=== PATIENT | female | born 1970 | race Caucasian/White ===

== ENCOUNTER 2017-10-18 15:37 | Emergency (ER) | payer MEDICARE, MEDICAID ==
[~2017-10-18] VITALS: Ht 154.9 cm; Wt 75.0 kg
[2017-10-18 17:07] VITALS: BP 141/96
[2017-10-18] MEDS ORDERED: SYMBICORT1 AE1 IN (17:08)
[2017-10-18] MEDS ORDERED: VENTOLIN HFA IN (17:08)
[2017-10-18] MEDS ORDERED: ZYLOPRIM100 MG PO (17:08)
[2017-10-18] MEDS ORDERED: [UNRECOGNIZED DRUG - REMARK] (17:09)
[2017-10-18] MEDS ORDERED: ACID REFULX MED (17:09)
[2017-10-18 17:27] LABS: INFLUENZA A NONE DETECTED (NONE DETECT); INFLUENZA B NONE DETECTED (NONE DETECT)
[2017-10-18] MEDS ORDERED: MEDDOSEPAK PO (18:10)
[2017-10-18] MEDS ORDERED: AMOXICILLIN500 M2 PO (18:10)
== END 2017-10-18 18:20 | disposition home or self-care (01) ==
LOC: ED 15:37
PROVIDERS: Emergency Medicine
DX: R05 Cough (principal); R09.81 Nasal congestion; R07.89 Other chest pain; J40 Bronchitis, not specified as acute or chronic

== ENCOUNTER 2017-10-22 15:20 | Observation (INO) | payer MEDICARE, MEDICAID ==
[~2017-10-22] VITALS: Ht 154.9 cm; Wt 69.1 kg
[~2017-10-22 15:20] MED LIST: ACID REFULX MED; AMOXICILLIN500 M2 PO; MEDDOSEPAK PO; SYMBICORT1 AE1 IN; VENTOLIN HFA IN; ZYLOPRIM100 MG PO; [UNRECOGNIZED DRUG - REMARK]
--- NOTE | 2017-10-22 15:40 | NUR ---
ekg obtained in triage, md given ekg at this time.
--- NOTE | 2017-10-22 16:25 | NUR ---
PT TAKEN TO ER ROOM 8 BY ADA. CHANGED INTO GOWN. PLACED ON MONITOR.
--- NOTE | 2017-10-22 16:34 | NUR ---
IV ESTABLISHED, LABS DRAWN. PTS BREATHING SLOWED, & EVENED OUT. PT WAS INITIALLY TACHYPENIC AT 28RR, CURRENTLY 18RR. PT PLACED ON MONITOR. @ BEDSIDE. PT IN STABLE CONDITION.
[2017-10-22 16:59] LABS: HEMATOCRIT 40.2 % (37.0-47.0); HEMOGLOBIN 13.7 g/dl (12.0-16.0); IMMATURE GRANULOCYTES 0.2 % (0.0-1.0); MEAN CELL VOLUME 80.2 fL CALC (80.0-100.0); MEAN CORPUSCULAR HGB 27.3 pG CALC (26.0-32.0); MEAN CORPUSCULAR HGB CONC 34.1 g/L CALC (32.0-36.0); NEUT# 6.71 thou/uL (2.00-7.15); RED BLOOD COUNT 5.01 mill/uL (4.20-5.60); RED CELL DISTRI WIDTH 14.7 % (11.5-15.5)
[2017-10-22 17:18] LABS: ALBUMIN 4.5 g/dL (3.2-5.0); ALKALINE PHOSPHATASE 74 u/l (38-126); ANION GAP 17 (6-22 (CALC)); BILIRUBIN, TOTAL 0.4 mg/dL (0.0-1.4); BUN 19 mg/dL (7-17); BUN/CREATININE RATIO 23 (12-20 (CALC)); CARBON DIOXIDE 22 mmol/l (22-30); CHLORIDE 106 mmol/l (95-108); CREATININE 0.8 mg/dL (0.5-1.0); GFR > 60 ML/MIN (>=60 (CALC)); GFR FOR AFR.AMER. > 60 ML/MIN (>=60 (CALC)); POTASSIUM 4.6 mmol/l (3.5-5.1); SGOT/AST 21 u/l (14-36); SGPT/ALT 23 u/l (9-52); SODIUM 141 mmol/l (137-146); TOTAL PROTEIN 7.4 g/dL (6.3-8.2)
--- NOTE | 2017-10-22 19:20 | NUR ---
Admission Note Report Given to: ANICETO Transported by: Wheelchair X Stretcher Transported with: X Nurse Transporter X Patent IV O2 X Geotechnical Intern
[2017-10-22 19:55] VITALS: BP 141/72
--- NOTE | 2017-10-22 20:00 | NUR ---
RECEIVED FROM ER VIA STRETCHER ACCOMPANIED BY ER NURSE, AMBULATING TO STANDING SCALE THEN TO BED WITH STEADY GAIT. A/O X3, RESPIRATIONS EVEN AND UNLABORED. VITALS 96.9, 72, 141/88, 100%. TELE READING SR. ADMITS TO PAIN 7/10 UNDER LEFT BREAST. ADMITS TO HAVING STRESS DUE TO TWO RECENT FAMILY DEATHS. DR. BOSTON AWARE OF PTS ARRIVAL TO THE UNIT, NEW ORDERS RECEIVED. ENCOURAGED TO USE CALL LIGHT FOR ASSISTANCE.
--- NOTE | 2017-10-22 20:11 | NUR ---
Admission Note Report Given to: GABRIELA Transported by: Wheelchair X Stretcher Transported with: X Nurse Transporter X Patent IV O2 X Meteorology Faculty Member PT TRANSFERED TO ICU 7 IN STABLE CONDITION.
[2017-10-22 20:13] LABS: URINE BILIRUBIN - DIPSTICK NEGATIVE (NEGATIVE); URINE BLOOD DIPSTICK NEGATIVE (NEGATIVE); URINE COLOR YELLOW; URINE GLUCOSE - DIPSTICK NEGATIVE (NEGATIVE); URINE KETONE NEGATIVE (NEGATIVE); URINE LEUK ESTERASE TRACE (NEGATIVE); URINE NITRITE - DIPSTICK NEGATIVE (Negative); URINE PROTEIN - DIPSTICK NEGATIVE (NEG-TRACE); URINE SPECIFIC GRAVITY 1.025; URINE UROBILINOGEN - DIPSTICK 0.2 E.U./dL (0.2)
[2017-10-22 20:17] LABS: URINE CLARITY CLEAR
--- NOTE | 2017-10-22 21:55 | NUR ---
TYLENOL 650MG PO PROVIDED FOR PAIN UNDER LEFT BREAST 03/29, AND XANAX 0.25MG PO FOR ANXIETY. WILL CONTINUE TO MONITOR.
[2017-10-23 00:17] VITALS: BP 114/76
--- NOTE | 2017-10-23 01:28 | NUR ---
RESTING IN SEMIFOWLERS WITH EYES CLOSED, RESPIRATINS EVEN AND UNLABORED. CALL LIGHT IN REACH.
[2017-10-23 03:38] LABS: CHOLESTEROL HDL RATIO 3.5 (<4.4 (CALC))
[2017-10-23 04:10] VITALS: BP 120/75
--- NOTE | 2017-10-23 05:00 | NUR ---
OOB TO BSC, VOIDING CLEAR YELLOW URINE, THEN BACK TO BED WITH STEADY GAIT. DENIES CHEST PAIN. CALL LIGHT IN REACH.
--- NOTE | 2017-10-23 07:05 | NUR ---
PT LAYING IN BED WATCHING TV, REMAINS AT BEDSIDE, PT A & O X3, PERRL , HR 74, RESP. 20, BP 133/66, O2 100% ON RA, LUNG SOUNDS CLEAR IN ALL AGUILAR, 18G RAC IV SALINE LOCKED, NO REDNESS OR DRAINAGE AT SITE, STRONG RADIAL AND PEDAL PULSES, AM ASSESSMENT COMPLETE, SEE INTERVENTIONS, SAFETY MEASURES REINFORCED, CALL HOLLEY WITHIN REACH
--- NOTE | 2017-10-23 07:30 | NUR ---
SETUP ASSISTANCE PROVIDED WITH DAMIAN DE LA TORRE
--- NOTE | 2017-10-23 08:05 | NUR ---
PT ASSISTED TO THE BSC AND BACK TO BED, PT AMBULATED WITH A STRONG STEADY GAIT, CALL HOLLEY WITHIN REACH
--- NOTE | 2017-10-23 09:00 | NUR ---
LAB AT BEDSIDE
--- NOTE | 2017-10-23 10:55 | NUR ---
DR BOSTON AT BEDSIDE DISCUSSING PLAN OF CARE
[2017-10-23] MEDS ORDERED: ASPIRINCHW 81MG PO (11:12)
[2017-10-23] MEDS ORDERED: AMLODIPINE BESYL5 MG PO (11:14)
--- NOTE | 2017-10-23 11:35 | NUR ---
SETUP ASSISTANCE PROVIDED WITH LUNCH TRAY
--- NOTE | 2017-10-23 11:45 | NUR ---
Discharge instructions given. Patient verbalizes understanding of same. Discharged in stable condition via Wheelchair to Home with spouse. All belongings sent with pt.
== END 2017-10-23 11:45 | disposition home or self-care (01) ==
LOC: ED 15:20 → ED-I 18:23 → ED 18:43 → MS2 18:44 → ICU 18:44
PROVIDERS: Family Medicine; ADMIT Internal Medicine; ATTEND Internal Medicine
DX: I16.0 Hypertensive urgency (principal); I10 Essential (primary) hypertension; F41.9 Anxiety disorder, unspecified; J40 Bronchitis, not specified as acute or chronic; F32.9 Major depressive disorder, single episode, unspecified; K21.9 Gastro-esophageal reflux disease without esophagitis; Z86.73 Personal history of transient ischemic attack (TIA), and cerebral infarction without residual deficits; R07.9 Chest pain, unspecified; R06.02 Shortness of breath; R42 Dizziness and giddiness

== ENCOUNTER 2017-11-22 18:32 | Emergency (ER) | payer MEDICARE, MEDICAID ==
[~2017-11-22] VITALS: Ht 154.9 cm; Wt 72.0 kg
[~2017-11-22 18:32] MED LIST changes: +AMLODIPINE BESYL5 MG PO; +ASPIRINCHW 81MG PO
[2017-11-22 20:01] LABS: HEMATOCRIT 40.7 % (37.0-47.0); HEMOGLOBIN 13.6 g/dl (12.0-16.0); IMMATURE GRANULOCYTES 0.4 % (0.0-1.0); MEAN CELL VOLUME 82.1 fL CALC (80.0-100.0); MEAN CORPUSCULAR HGB 27.4 pG CALC (26.0-32.0); MEAN CORPUSCULAR HGB CONC 33.4 g/L CALC (32.0-36.0); NEUT# 3.53 thou/uL (2.00-7.15); RED BLOOD COUNT 4.96 mill/uL (4.20-5.60)
[2017-11-22 20:09] LABS: URINE BILIRUBIN - DIPSTICK NEGATIVE (NEGATIVE); URINE BLOOD DIPSTICK MODERATE (NEGATIVE); URINE COLOR YELLOW; URINE GLUCOSE - DIPSTICK NEGATIVE (NEGATIVE); URINE KETONE NEGATIVE (NEGATIVE); URINE LEUK ESTERASE NEGATIVE (NEGATIVE); URINE NITRITE - DIPSTICK NEGATIVE (Negative); URINE PROTEIN - DIPSTICK NEGATIVE (NEG-TRACE); URINE UROBILINOGEN - DIPSTICK 0.2 E.U./dL (0.2)
[2017-11-22 20:11] LABS: URINE CLARITY CLEAR
[2017-11-22 20:27] LABS: URINE WBC 0-2 WBC/hpf (0-5)
[2017-11-22 20:35] LABS: INTERNATIONAL NORMALIZED RATIO 0.9 RATIO (0.7-1.3); PROTHROMBIN TIME 10.3 SECONDS (9.0-12.5)
[2017-11-22 21:00] VITALS: BP 132/77
== END 2017-11-22 21:07 | disposition home or self-care (01) ==
LOC: ED 18:32
PROVIDERS: Emergency Medicine; Family Medicine
DX: N93.8 Other specified abnormal uterine and vaginal bleeding (principal); I10 Essential (primary) hypertension; F41.9 Anxiety disorder, unspecified; F32.9 Major depressive disorder, single episode, unspecified; J45.909 Unspecified asthma, uncomplicated; Z86.73 Personal history of transient ischemic attack (TIA), and cerebral infarction without residual deficits